=== PATIENT | female | born 1965 | race Caucasian/White ===

== ENCOUNTER → 2018-08-17 | Day surgery (SDC) | payer BC ==
[2018-08-15 16:37] VITALS: BMI 22.8
[~2018-08-17] MED LIST: ACETAMINOPHEN 325 MG TABLET (FP) PO PRN; DESFLURANE GAS 240 ML BOTTLE IH ONE; DEXAMETHASONE SOD PHOSPHATE 4 MG/1 ML VIAL ONE; DEXMEDETOMIDINE HCL 200 MCG/2 ML IVPB ONE; IBUPROFEN 400 MG TABLET (FP) PO PRN; KETOROLAC TROMETHAMINE 30 MG/1 ML VIAL ONE; LACTATED RINGERS SOLUTION 1,000 ML IV SCH; LIDOCAINE HCL/PF 2% SDV 5ML VIAL ONE; MAGNESIUM SULF 50% (8.12 MEQ/2 ML-1 GM VIAL) ONE; MIDAZOLAM HCL 2 MG/2 ML SINGLE DOSE VIAL ONE; ONDANSETRON 4 MG/2 ML VIAL IVPUSH ONE; ONDANSETRON 4 MG/2 ML VIAL IVPUSH PRN; ONDANSETRON 4 MG/2 ML VIAL ONE; PROPOFOL 20 ML ONE; SUCCINYLCHOLINE CHLORIDE 200 MG/10 ML VIAL ONE; oxyCODONE HCL 5 MG TABLET PO PRN
--- NOTE | 2018-08-17 07:52 | HP ---
History & Physical Update - History History: No Change - Physical Physical: No Change - Assessment Assessment: No Change - Plan Plan: No Change (No change in HP)
--- NOTE | 2018-08-17 09:00 | OP ---
DATE OF OPERATION: 08/17/2018 PREOPERATIVE DIAGNOSIS: Submucosal myoma, menorrhagia. POSTOPERATIVE DIAGNOSIS: Submucosal myoma, menorrhagia. OPERATION: Hysteroscopic myomectomy, suction dilation and curettage. FINDINGS: Submucosal myoma located in the left side of the endometrial cavity. DESCRIPTION OF PROCEDURE: Patient was taken to the operating room, placed in the dorsal lithotomy position, prepped and draped in the usual sterile fashion. Timeout was performed in accordance to hospital regulation. Speculum was placed in the vagina. Anterior lip of the cervix was grasped with a single-tooth tenaculum. Cervix was then dilated to accommodate the operative hysteroscope. Operative hysteroscope was inserted, and visualization revealed a submucosal myoma located on the left side of the cornual area of the uterus. Cautery and cutting of the myoma were done. Suction D&C was performed. Specimen was submitted to pathology. Hemostasis was achieved. ESTIMATED BLOOD LOSS: 50 mL. Kyle [id number]
[2018-08-17 14:44] VITALS: BP 124/74; PULSE 64; TEMP 97.8
--- NOTE | 2018-08-18 17:19 | PATH ---
Surgical Pathology Report Patient Name: FARRUKH ZURITA [facility]. Rec. #: [id number] /Age/Gender: 1965 (Age: 52) / F Account: [id number] Location: [facility] SURGICAL Taken: 08/17/2018 Received: 08/17/2018 Reported: 08/18/2018 Physicians: Socorro Bowen M.D. Specimen(s) Received ENDOMETRIAL POLYP Clinical History Endometrial polyp Final Diagnosis ENDOMETRIAL POLYP, SUCTION DILATION AND CURETTAGE: FRAGMENTS OF ENDOMETRIAL POLYP, LOWER UTERINE SEGMENT, AND BENIGN CERVICAL SQUAMOUS MUCOSA. Electronically Signed Rashmi Hutson M.D. Gross Description Received in formalin labeled "endometrial polyp," is a 2.0 x 1.5 x 0.2 cm aggregate of red-brown soft tissue fragments. The formalin is filtered and the specimen is entirely submitted in one cassette. DL/08/17/2018 saudi/08/17/2018
== END | disposition home or self-care (01) ==
LOC: JASU-SURG 04:52
PROVIDERS: ATTEND Obstetrics & Gynecology
PROC: 0UJD8ZZ Inspection of Uterus and Cervix, Via Natural or Artificial Opening Endoscopic (ICD-10-PCS; 2018-08-17)
PROC: 0UB98ZZ Excision of Uterus, Via Natural or Artificial Opening Endoscopic (ICD-10-PCS; principal; 2018-08-17 07:30)
PROC: 0UDB7ZX Extraction of Endometrium, Via Natural or Artificial Opening, Diagnostic (ICD-10-PCS; 2018-08-17 07:30)
DX: D25.0 Submucous leiomyoma of uterus (principal); N92.0 Excessive and frequent menstruation with regular cycle
CPT/HCPCS: 86850; 86900; 86901; 88305-TC; 94760